=== PATIENT | female | born 1985 | race African-American/Black ===

== ENCOUNTER 2023-08-11 10:23 | Emergency (ER) | payer MEDICAID, OTHER ==
[~2023-08-11] VITALS: Ht 170.2 cm; Wt 76.4 kg
[~2023-08-11 10:23] MED LIST: NOCURR
[2023-08-11 10:31] VITALS: TEMP 97.9
[2023-08-11] MEDS ORDERED: IBUP-1554 PO (11:44)
[2023-08-11] MEDS ORDERED: METH-659 PO (11:44)
[2023-08-11] MEDS ORDERED: ACET-66 PO (11:44)
[2023-08-11 12:00] VITALS: BP 135/77; PULSE 84; RESP 18
== END 2023-08-11 12:59 | disposition home or self-care (01) ==
LOC: EMS 10:43
DX: S13.4XXA Sprain of ligaments of cervical spine, initial encounter (principal); V49.88XA Car occupant (driver) (passenger) injured in other specified transport accidents, initial encounter; Y93.89 Activity, other specified; Y92.89 Other specified places as the place of occurrence of the external cause; Y99.9 Unspecified external cause status
CPT/HCPCS: 99283

== ENCOUNTER 2023-12-25 14:19 | Emergency (ER) | payer OTHER ==
[~2023-12-25] VITALS: Ht 170.2 cm; Wt 93.6 kg
[~2023-12-25 14:19] MED LIST changes: +ACET-66 PO; +IBUP-1554 PO; +METH-659 PO
[2023-12-25 14:23] VITALS: BP 159/101; PULSE 87; RESP 16; TEMP 98.1
[2023-12-25] MEDS ORDERED: AMOX-457 PO (17:46)
== END 2023-12-25 18:09 | disposition home or self-care (01) ==
LOC: EMS 14:19
DX: H74.91 Unspecified disorder of right middle ear and mastoid (principal)
CPT/HCPCS: 99283; Z7502